=== PATIENT | female | born 1980 | race Caucasian/White ===

== ENCOUNTER 2019-06-10 20:01 | Emergency (ER) | payer OTHER ==
[~2019-06-10] VITALS: Ht 175.3 cm; Wt 86.4 kg
[~2019-06-10 20:01] MED LIST: ABILIFY 10MG TA10 MG PO; ABILIFY2 MG; AMOXICILLIN 8751 TAB PO; ANTIVERT 25MG25 MG PO; CYMBALTA 60MG60 MG PO; DEPAKOTE ER 50500 MG PO; DESYREL DIVIDO150 M1 PO; IMITREX ST6 MG/0.5 M SC; KLONOPIN 0.5MG0.5 MG PO; LEXAPRO 5MG5 MG; LEXAPRO20 MG PO; MIRAPEX0.25 MG PO; NEURONTIN400 MG/CAP PO; PROMETHAZINE12.5 M5 PO; PROZAC60 MG PO; TOPAMAX 100MG100 M1 PO; TOPAMAX 25MG25 M1 PO
[2019-06-10 21:37] VITALS: BP 114/74; TEMP 98.1
[2019-06-10] MEDS ORDERED: SEROQUEL 1100 MG/TAB PO (21:48)
[2019-06-10] MEDS ORDERED: EFFEXOR XR75 MG/CAP PO (21:48)
[2019-06-10] MEDS ORDERED: REQUIP 0.5MG0.5 MG PO (21:49)
[2019-06-10] MEDS ORDERED: CATAPRES 0.1MG0.1 MG PO (21:50)
[2019-06-10] MEDS ORDERED: ONE-A-DAY WOMEN1 TAB (21:50)
[2019-06-10] MEDS ORDERED: AMOXICILLIN 8751 TAB PO (21:51)
[2019-06-10] MEDS ORDERED: MEDROL4 MG (21:52)
[2019-06-10 23:25] VITALS: PULSE 80
== END 2019-06-10 23:25 | disposition home or self-care (01) ==
LOC: COL.ER 20:01
DX: J18.9 Pneumonia, unspecified organism (principal); D68.0 Von Willebrand disease; F17.210 Nicotine dependence, cigarettes, uncomplicated; Z88.8 Allergy status to other drugs, medicaments and biological substances

== ENCOUNTER 2020-07-30 15:15 | Emergency (ER) | payer OTHER ==
[~2020-07-30] VITALS: Ht 175.3 cm; Wt 76.8 kg
[~2020-07-30 15:15] MED LIST changes: +CATAPRES 0.1MG0.1 MG PO; +EFFEXOR XR75 MG/CAP PO; +MEDROL4 MG; +ONE-A-DAY WOMEN1 TAB; +REQUIP 0.5MG0.5 MG PO; +SEROQUEL 1100 MG/TAB PO
[2020-07-30 15:16] VITALS: BP 115/81; TEMP 98.8
[2020-07-30 16:15] VITALS: PULSE 76
== END 2020-07-30 16:15 | disposition home or self-care (01) ==
LOC: COL.ER 15:15
DX: G40.909 Epilepsy, unspecified, not intractable, without status epilepticus (principal); F32.9 Major depressive disorder, single episode, unspecified; F43.10 Post-traumatic stress disorder, unspecified; F17.210 Nicotine dependence, cigarettes, uncomplicated; Z88.1 Allergy status to other antibiotic agents; Z88.8 Allergy status to other drugs, medicaments and biological substances; Z79.899 Other long term (current) drug therapy